=== PATIENT | male | born 1995 | race Caucasian/White ===

== ENCOUNTER 2017-07-18 18:52 | Emergency (ER) | payer MEDICAID, OTHER ==
[~2017-07-18] VITALS: Ht 177.8 cm; Wt 73.5 kg
[2017-07-18 18:56] VITALS: BP 148/93
[2017-07-18] MEDS ORDERED: FLUORESCEIN OPHTHALMIC 1 MG STRIP ONE (19:18)
[2017-07-18] MEDS ORDERED: PROPARACAINE OPHTH 0.5%, 15ML ONE (19:18)
== END 2017-07-18 20:01 | disposition home or self-care (01) ==
LOC: ED 19:40
DX: H10.022 Other mucopurulent conjunctivitis, left eye (principal); J20.9 Acute bronchitis, unspecified; J01.00 Acute maxillary sinusitis, unspecified
CPT/HCPCS: 99283

== ENCOUNTER 2020-01-29 13:05 | Emergency (ER) | payer OTHER ==
[~2020-01-29] VITALS: Ht 177.8 cm; Wt 72.0 kg
[2020-01-29 13:33] VITALS: BP 123/76
[2020-01-29] MEDS ORDERED: FLUORESCEIN OPHTHALMIC 1 MG STRIP ONE (14:12)
--- NOTE | 2020-01-29 14:45 | NUR ---
Patient given discharge instructions and they have confirmed that they understand the instructions. Patient ambulatory with steady gait.
== END 2020-01-29 14:47 | disposition home or self-care (01) ==
LOC: ED 14:40
DX: H40.1110 Primary open-angle glaucoma, right eye, stage unspecified (principal); G89.11 Acute pain due to trauma; H57.11 Ocular pain, right eye
CPT/HCPCS: 99283